=== PATIENT | female | born 1950 | race Caucasian/White ===

== ENCOUNTER 2023-12-28 08:37 | Outpatient (OUT) | payer MEDICARE, BC, SELFPAY ==
[2023-12-28 09:34] LABS: Alanine Aminotransferase 20 U/L (14-59); Albumin Globulin Ratio 0.8; Albumin Level 3.4 g/dL (3.4-5.0); Alkaline Phosphatase 84 U/L (46-116); Anion Gap 11.5; Aspartate Amino Transferase 19 U/L (15-37); BUN Creatinine Ratio 17.4; Bilirubin Total 0.4 mg/dL (0.2-1.0); Calcium 9.6 mg/dL (8.5-10.1); Carbon Dioxide 27.8 mmol/L (21.0-32.0); Chloride 104 mmol/L (98-107); Cholesterol 199 mg/dL (<=200); Estimated GFR (African America >60 (>=60); Estimated GFR (Non-African Ame 60 (>=60); Globulin 4.1 g/dL; Glucose 101 mg/dL (74-106); HDL Cholesterol 56 mg/dL (40-60); Potassium 4.3 mmol/L (3.5-5.1); Sodium 139 mmol/L (136-145); Total Protein 7.5 g/dL (6.4-8.2); Triglycerides 86 mg/dL (<=150); VLDL CHOLESTEROL 17.2 mg/dL
[2023-12-28 09:35] LABS: Chol HDL Ratio 3.6; LDL Cholesterol Calculated 125.8 mg/dL; TSH W/ REFLEX FT4 2.921 uIU/mL (0.358-3.740)
== END 2023-12-28 08:38 | disposition home or self-care (01) ==
LOC: LAB 08:40
PROVIDERS: PCP Internal Medicine; Visit Provider Internal Medicine
DX: Z00.00 Encounter for general adult medical examination without abnormal findings (principal)
CPT/HCPCS: 36415; 80053; 80061; 84443

== ENCOUNTER 2024-12-14 09:29 | Outpatient (OUT) | payer MEDICARE, BC, SELFPAY | END 2024-12-14 09:30 | disposition home or self-care (01) | LOC: RAD 09:29 | PROVIDERS: PCP Internal Medicine; Visit Provider Internal Medicine | DX: E28.39 Other primary ovarian failure (principal); M85.80 Other specified disorders of bone density and structure, unspecified site | CPT/HCPCS: 77080 ==